=== PATIENT | female | born 1985 | race Caucasian/White ===

== ENCOUNTER 2021-06-12 17:51 | Emergency (ER) | payer OTHER ==
[~2021-06-12] VITALS: Ht 175.3 cm; Wt 81.7 kg
[2021-06-12] MEDS ORDERED: MOBIC7.5 MG PO ×2 (19:02→19:09)
[2021-06-12 20:03] VITALS: BP 113/68
== END 2021-06-12 20:10 | disposition home or self-care (01) ==
LOC: ER 17:51
DX: M25.531 Pain in right wrist (principal); Z90.49 Acquired absence of other specified parts of digestive tract